=== PATIENT | male | born 1940 | race Caucasian/White ===

== ENCOUNTER 2017-11-13 06:46 | Emergency (ER) | payer MEDICARE, OTHER ==
[~2017-11-13] VITALS: Ht 182.9 cm; Wt 90.7 kg
[2017-11-13 07:32] LABS: BILIRUBIN,URINE NEGATIVE (NEGATIVE); CLARITY,URINE CLEAR (CLEAR); COLOR,URINE YELLOW (YELLOW); KETONES,URINE NEGATIVE (NEGATIVE); LEUKOCYTE ESTERASE ,URINE NEGATIVE (NEGATIVE); NITRITE,URINE NEGATIVE (NEGATIVE); PROTEIN,URINE DIPSTICK NEGATIVE (NEGATIVE); URINE UROBILINOGEN 0.2 mg/dL (0.2 - 1)
--- NOTE | 2017-11-13 07:45 | Diagnostic Imaging Report ---
PROCEDURE: CT ABDOMEN AND PELVIS WITHOUT CONTRAST TECHNIQUE: The abdomen and pelvis were scanned utilizing a multidetector helical scanner from the diaphragm to the lesser trochanter. No oral or intravenous contrast was administered per renal stone protocol. Coronal and sagittal multiplanar reformations were obtained. COMPARISON: 12/15/[address] abdomen with and without contrast 12/11/2007. INDICATIONS: KIDNEY STONES FINDINGS: ABSENCE OF INTRAVENOUS CONTRAST DECREASES SENSITIVITY FOR DETECTION OF FOCAL LESIONS AND VASCULAR PATHOLOGY. LOWER THORAX: Unchanged left hemidiaphragmatic elevation. Lingular subsegmental atelectasis or fibrotic change. Medial basal segmental right lower lobe scar, unchanged. No pericardial or pleural effusion.. HEPATOBILIARY: No focal hepatic lesions. No biliary ductal dilatation. SPLEEN: No splenomegaly. PANCREAS: No focal masses or ductal dilatation. ADRENALS: No adrenal nodules. KIDNEYS/URETERS: Punctate nonobstructing calculi in the upper and lower pole of the right kidney seen on series 3 image 79 and 94. No additional right renal or ureteral calculi. 3 mm distal left ureteral calculus seen on series 3 image 161 results in mild hydroureteronephrosis as well as perinephric-periureteral inflammatory change. Right lower pole renal cyst is unchanged. PELVIC ORGANS/BLADDER: Urinary bladder is collapsed and poorly evaluated. Prostate and seminal vesicles appear normal. PERITONEUM / RETROPERITONEUM: No ascites or pneumoperitoneum. LYMPH NODES: No pelvic sidewall, retroperitoneal, or mesenteric lymphadenopathy. VESSELS: The atherosclerotic calcification of the abdominal aorta, major vessels, and iliac arterial systems. Otherwise limited evaluation in the absence of intravenous contrast. GI TRACT: The large bowel shows no evidence of distention or wall thickening, though the distal sigmoid colon and rectum are collapsed and poorly evaluated. The appendix is normal. No small bowel dilatation to suggest obstruction. BONES AND SOFT TISSUES: Small fat-containing bilateral inguinal hernias. Otherwise no focal soft tissue abnormalities. Multilevel degenerative disc changes and degenerative facet arthropathy of the lumbar spine. IMPRESSION: 3 mm distal left ureteral calculus results in mild hydroureteronephrosis and perinephric-periureteral inflammation. Punctate nonobstructing right renal calculi. Atherosclerotic vascular disease. Dictated by: Dennis Taveras M.D. on 11/13/2017 at 7:53 Electronically approved by: Dennis Taveras M.D. on 11/13/2017 at 7:53
[2017-11-13 07:47] LABS: RBC,URINE 0-5 /HPF (0-5); WBC,URINE (MAN) 0-5 /HPF (0-5)
== END 2017-11-13 10:56 | disposition home or self-care (01) ==
LOC: ER 06:46
DX: M54.9 Dorsalgia, unspecified (principal); R10.9 Unspecified abdominal pain; N20.1 Calculus of ureter; E03.9 Hypothyroidism, unspecified
CPT/HCPCS: 74176; 81001; 87086; 99283

== ENCOUNTER → 2018-06-26 | Day surgery (SDC) | payer MEDICARE ==
[2018-06-21 11:33] LABS: BASOPHILS % 0.6 % (0.0-1.0); EOSINOPHILS # (AUTO) 0.1 (0.0-0.4); EOSINOPHILS % 0.7 % (0.0-6.0); HEMATOCRIT 45.3 % (38.2-49.6); HEMOGLOBIN 15.7 g/dL (14.0-18.0); LYMPHOCYTES % 15.1 % (18.0-39.1); MEAN CORPUSCULAR HEMOGLOBIN 32.3 pg (28-32); MEAN CORPUSCULAR HGB CONC 34.7 g/dL (31-35); MEAN CORPUSCULAR VOLUME 93.2 fL (81-99); MONOCYTES # (AUTO) 0.7 (0.2-0.8); MONOCYTES % 10.7 % (4.4-11.3); NEUTROPHILS # (AUTO) 4.9 (2.1-6.9); NEUTROPHILS % 72.5 % (38.7-80.0); PLATELET COUNT 166 x10e3/uL (140-360); RED BLOOD COUNT 4.86 x10e6/uL (4.3-5.7); RED CELL DISTRIBUTION WIDTH 13.2 % (11.7-14.4)
[~2018-06-26] MED LIST: CELEBREX100 MG PO; FENTANYL CITRATE/PF 100MCG/2 ML INJ ONE; GLUCAGON FOR INJ 1 MG VIAL ONE; LEVOTHYROXINE75 MCG PO; MIDAZOLAM HCL 2 MG/2 ML VIAL ONE; PROPOFOL IV EMULSION 10 MG/ML 50 ML VIAL ONE
--- NOTE | 2018-06-26 13:38 | Operative Report ---
DATE OF PROCEDURE: June 26, 2018 REFERRING PHYSICIAN: Dr. Katheryn Tejeda. PROCEDURE PERFORMED: Colonoscopy and polypectomy. INDICATIONS FOR COLONOSCOPY: Colorectal cancer screening. MEDICATION: Patient was done under MAC, please see anesthesiologist's note. PROCEDURE: With the patient in left lateral decubitus position, the flexible fiberoptic Olympus colonoscope was inserted into the rectum with ease and advanced all the way to the cecum. A minute polyp was noted in the cecum that was hot biopsied and the polypectomy site was hemoclipped. The scope was then withdrawn slowly and the ascending colon appeared to be within normal limits. One polyp was hot biopsied from the transverse colon. The descending, sigmoid, and rectum grossly appeared to be within normal limits. The scope was then retroflexed into the distal rectum and small internal hemorrhoids were noted, none of which is actively bleeding. The scope was then straightened out. The scope was subsequently withdrawn. Patient tolerated the procedure well. IMPRESSION 1. Cecal polyp, hot biopsied, site prophylactically hemoclipped. 2. Transverse colon polyp, hot biopsied. 3. Internal hemorrhoids, none actively bleeding. PLAN: Follow up histology. Initiate high-fiber, low-fat diet. Initiate high-fiber supplement. Patient might benefit from a followup colonoscopy in 5 years. Job#: [id number] VAS cc:DR. KATHERYN TEJEDA
== END | disposition home or self-care (01) ==
LOC: OR 09:09
PROVIDERS: ATTEND Internal Medicine Gastroenterology
DX: Z12.11 Encounter for screening for malignant neoplasm of colon (principal); D12.3 Benign neoplasm of transverse colon; K64.8 Other hemorrhoids; R19.15 Other abnormal bowel sounds; R03.0 Elevated blood-pressure reading, without diagnosis of hypertension; M19.90 Unspecified osteoarthritis, unspecified site; E03.9 Hypothyroidism, unspecified; Z01.810 Encounter for preprocedural cardiovascular examination; Z01.812 Encounter for preprocedural laboratory examination; Z85.828 Personal history of other malignant neoplasm of skin; Z87.442 Personal history of urinary calculi; Z80.0 Family history of malignant neoplasm of digestive organs
CPT/HCPCS: 36415; 45384; 85025; 88305; 93005; J1610; J2250; 45378